=== PATIENT | male | born 1940 | race Two or more races ===

== ENCOUNTER 2023-12-07 11:31 | Emergency (ER) | payer OTHER ==
[2023-12-07 12:08] VITALS: RESP 18; TEMP 97.5
[2023-12-07 13:51] LABS: BASO % 0.8 % (0-2.0); EOS % 3.4 % (0-4.5); HEMATOCRIT 42.3 % (35.4-49); HEMOGLOBIN 14.1 GM/dL (11.7-16.9); LYMPH % 24.1 % (8-40); MCH 30.5 pg (25.7-33.7); MCHC 33.3 g/dl (32.0-35.9); MEAN CELL VOLUME 91.4 fl (80-96); MEAN PLT VOLUME 9.3 fl (7.5-11.1); NEUT % 63.7 % (42.8-82.8); PLATELET COUNT 151 10^3/uL (134-434); RBC 4.63 M/mm3 (4.00-5.60); RDW 14.1 % (11.9-15.9); WHITE BLOOD COUNT 4.4 K/mm3 (4.0-10.0)
[2023-12-07 14:07] LABS: POTASSIUM 4.7 mmol/L (3.5-5.1)
[2023-12-07 14:10] LABS: ALBUMIN 3.4 g/dl (3.4-5.0); CALCIUM 9.5 mg/dL (8.5-10.1)
[2023-12-07 14:13] LABS: CREATININE 1.4 mg/dL (0.55-1.3)
[2023-12-07 14:15] LABS: BILIRUBIN,TOTAL 1.9 mg/dL (0.2-1); TOT PROT 7.2 g/dl (6.4-8.2)
[2023-12-07 14:58] VITALS: BP 182/91; PULSE 60
== END 2023-12-07 15:07 | disposition home or self-care (01) ==
LOC: JER 11:31
DX: I10 Essential (primary) hypertension (principal)
CPT/HCPCS: 36415; 80053; 85025; 93005; 93010; 99284-25

== ENCOUNTER 2024-04-03 09:09 | Inpatient (IN) | payer OTHER ==
[2024-04-03] MEDS ORDERED: METHOCARBAMOL 500 MG TABLET ONE ×2 (10:48→18:48)
[2024-04-03] MEDS ORDERED: ACETAMINOPHEN 325 MG TABLET (FP) ONE ×2 (10:48→18:48)
[2024-04-03] MEDS ORDERED: LIDOCAINE 4% PATCH TP ONE ×2 (10:48→11:58)
[2024-04-03] MEDS: LIDOCAINE 4% PATCH TP ONE (12:07)
[2024-04-03] MEDS: METHOCARBAMOL 750 MG TABLET PO ONE (12:07)
[2024-04-03] MEDS: ACETAMINOPHEN 325 MG TABLET (FP) PO ONE ×2 (12:07→18:52)
[2024-04-03 12:29] LABS: BASO % 0.4 % (0-2.0); EOS % 0.1 % (0-4.5); HEMATOCRIT 39.2 % (35.4-49); HEMOGLOBIN 13.4 GM/dL (11.7-16.9); MCH 31.5 pg (25.7-33.7); MCHC 34.2 g/dl (32.0-35.9); MEAN PLT VOLUME 9.5 fl (7.5-11.1); MONO % 8.5 % (3.8-10.2); PLATELET COUNT 126 10^3/uL (134-434); RBC 4.26 M/mm3 (4.00-5.60); RDW 14.1 % (11.9-15.9); WHITE BLOOD COUNT 11.7 K/mm3 (4.0-10.0)
[2024-04-03 13:23] LABS: POTASSIUM 3.8 mmol/L (3.5-5.1)
[2024-04-03 13:29] LABS: ALBUMIN 3.6 g/dl (3.4-5.0); CALCIUM 9.6 mg/dL (8.5-10.1)
[2024-04-03 13:31] LABS: CREATININE 1.5 mg/dL (0.55-1.3)
[2024-04-03 13:33] LABS: BILIRUBIN,TOTAL 2.8 mg/dL (0.2-1); TOT PROT 7.2 g/dl (6.4-8.2)
[2024-04-03] MEDS: METHOCARBAMOL 750 MG TAB PO ONE (18:52)
[2024-04-03] MEDS ORDERED: DEXTROSE 50%-WATER 25 GM/50 ML DISP.SYRIN ONE (22:28)
[2024-04-03] MEDS ORDERED: CALCIUM GLUCONATE 10% - 1,000 MG/10 ML VIAL ONE (22:29)
[2024-04-03] MEDS ORDERED: INSULIN REGULAR HUMAN 100 UNITS/ML *VIAL ONE (22:29)
[2024-04-03] MEDS ORDERED: HYDROCORTISONE SOD SUCCINATE 100 MG/2 ML VIAL ONE (23:25)
[2024-04-03] MEDS ORDERED: GLUCAGON 1 MG KIT ONE (23:49)
[2024-04-04] MEDS ORDERED: oxyCODONE HCL 5 MG TABLET PO PRN ×2 (03:10→03:19)
[2024-04-04] MEDS ORDERED: ACETAMINOPHEN 325 MG TABLET (FP) PO PRN (03:10)
[2024-04-04] MEDS: SODIUM CHLORIDE 1,000 ML IV SCH (03:30)
[2024-04-04] MEDS: HEPARIN NA (PORCINE) 5,000 UNITS/ML 1ML VIAL SQ SCH (06:03)
[2024-04-04] MEDS: INSULIN ASPART SLIDING SCALE (NOVOLOG) 1 VIAL SQ SCH (06:13)
[2024-04-04 07:00] VITALS: BMI 25.7
[2024-04-04] MEDS: DOCUSATE SODIUM 100 MG CAPSULE (FP) PO SCH (09:25)
[2024-04-04] MEDS ORDERED: POLYETHYLENE GLYCOL (HEALTHYLAX) 3350 17 GM PACKET PO SCH (10:00)
[2024-04-04 10:20] LABS: BASO % 0.1 % (0-2.0); HEMATOCRIT 38.7 % (35.4-49); HEMOGLOBIN 13.1 GM/dL (11.7-16.9); LYMPH % 8.4 % (8-40); MCH 31.3 pg (25.7-33.7); MCHC 33.8 g/dl (32.0-35.9); MEAN CELL VOLUME 92.8 fl (80-96); MEAN PLT VOLUME 8.8 fl (7.5-11.1); MONO % 8.5 % (3.8-10.2); PLATELET COUNT 122 10^3/uL (134-434); RBC 4.17 M/mm3 (4.00-5.60); RDW 13.6 % (11.9-15.9); WHITE BLOOD COUNT 16.1 K/mm3 (4.0-10.0)
[2024-04-04] MEDS ORDERED: GABAPENTIN 100 MG CAPSULE PO SCH (10:45)
[2024-04-04 11:01] LABS: ALBUMIN 3.3 g/dl (3.4-5.0); BLOOD UREA NITROGEN 28.1 mg/dL (7-18); CALCIUM 9.2 mg/dL (8.5-10.1); MAGNESIUM 2.2 mg/dL (1.8-2.4); POTASSIUM 3.2 mmol/L (3.5-5.1)
[2024-04-04 11:03] LABS: BILIRUBIN,DIRECT 0.5 mg/dL (0.0-0.2)
[2024-04-04 11:09] LABS: BILIRUBIN,TOTAL 3.2 mg/dL (0.2-1); PHOSPHOROUS 2.6 mg/dL (2.5-4.9); TOT PROT 7.1 g/dl (6.4-8.2)
[2024-04-04] MEDS: ACETAMINOPHEN 325 MG TABLET (FP) PO SCH (11:59)
[2024-04-04] MEDS: GABAPENTIN 100 MG CAPSULE PO SCH (14:08)
[2024-04-04 14:56] LABS: ANISOCYTOSIS 2+; MACROCYTOSIS 0
[2024-04-04 15:37] LABS: RETICULOCYTES 0.97 % (0.5-1.5)
[2024-04-04 15:51] LABS: EPI CELLS 9 /uL (0-25.1); HYALINE CASTS 0 /uL (0-3.1); PH,URINE 5.5 (5.0-8.0); URINE APPEARANCE CLOUDY; URINE BACTERIA >9,000 /uL (0-1359); URINE BILIRUBIN NEGATIVE (NEGATIVE); URINE COLOR YELLOW; URINE GLUCOSE (UA) NEGATIVE (NEGATIVE); URINE KETONE TRACE (NEGATIVE); URINE LEUK ESTERASE 3+ (NEGATIVE); URINE NITRITE NEGATIVE (NEGATIVE); URINE PROTEIN 2+ (NEGATIVE); URINE RBC 68 /uL (0-23.9); URINE WBC 4687 /uL (0-25.8)
[2024-04-04 17:23] LABS: YEAST NONE SEEN (NEGATIVE)
[2024-04-05 09:55] LABS: BASO % 0.1 % (0-2.0); EOS % 0.1 % (0-4.5); HEMATOCRIT 35.9 % (35.4-49); HEMOGLOBIN 12.5 GM/dL (11.7-16.9); LYMPH % 7.2 % (8-40); MCH 31.7 pg (25.7-33.7); MCHC 34.8 g/dl (32.0-35.9); MEAN CELL VOLUME 90.9 fl (80-96); MEAN PLT VOLUME 9.1 fl (7.5-11.1); MONO % 10.2 % (3.8-10.2); NEUT % 82.4 % (42.8-82.8); PLATELET COUNT 116 10^3/uL (134-434); RBC 3.95 M/mm3 (4.00-5.60); WHITE BLOOD COUNT 10.8 K/mm3 (4.0-10.0)
[2024-04-05 10:10] LABS: POTASSIUM 3.4 mmol/L (3.5-5.1)
[2024-04-05 10:14] LABS: ALBUMIN 2.8 g/dl (3.4-5.0); BLOOD UREA NITROGEN 36.3 mg/dL (7-18); CALCIUM 8.7 mg/dL (8.5-10.1)
[2024-04-05 10:17] LABS: CREATININE 1.9 mg/dL (0.55-1.3)
[2024-04-05 10:18] LABS: BILIRUBIN,TOTAL 1.9 mg/dL (0.2-1); TOT PROT 6.8 g/dl (6.4-8.2)
[2024-04-05] MEDS: oxyCODONE HCL 5 MG TABLET PO PRN (11:02)
[2024-04-05] MEDS: LISINOPRIL 20 MG TABLET PO ONE (12:27)
[2024-04-05] MEDS: POTASSIUM CHLORIDE ORAL LIQUID 20 MEQ/15 ML PO ONE (18:06)
[2024-04-05] MEDS: SENNOSIDES 8.6MG TABLET (FP) PO SCH (18:40)
[2024-04-05] MEDS: POLYETHYLENE GLYCOL (HEALTHYLAX) 3350 17 GM PACKET PO SCH (21:39)
[2024-04-06 09:23] LABS: BASO % 0.3 % (0-2.0); EOS % 0.9 % (0-4.5); HEMATOCRIT 34.4 % (35.4-49); HEMOGLOBIN 11.9 GM/dL (11.7-16.9); LYMPH % 9.6 % (8-40); MCH 31.6 pg (25.7-33.7); MCHC 34.6 g/dl (32.0-35.9); MEAN CELL VOLUME 91.3 fl (80-96); MEAN PLT VOLUME 8.6 fl (7.5-11.1); MONO % 10.4 % (3.8-10.2); NEUT % 78.8 % (42.8-82.8); PLATELET COUNT 121 10^3/uL (134-434); RBC 3.76 M/mm3 (4.00-5.60); RDW 13.8 % (11.9-15.9); WHITE BLOOD COUNT 7.4 K/mm3 (4.0-10.0)
[2024-04-06 10:05] LABS: POTASSIUM 3.5 mmol/L (3.5-5.1)
[2024-04-06 10:07] LABS: ALBUMIN 2.5 g/dl (3.4-5.0); CALCIUM 8.3 mg/dL (8.5-10.1)
[2024-04-06 10:08] LABS: BLOOD UREA NITROGEN 37.3 mg/dL (7-18)
[2024-04-06 10:12] LABS: BILIRUBIN,TOTAL 1.1 mg/dL (0.2-1); CREATININE 1.7 mg/dL (0.55-1.3); TOT PROT 6.2 g/dl (6.4-8.2)
[2024-04-06 14:31] VITALS: RESP 18
[2024-04-06] MEDS: BISACODYL 10 MG SUPP.RECT PR ONE (15:04)
[2024-04-06] MEDS: metoPROLOL SUCCINATE 25 MG TAB.SR.24H (FP) PO SCH (15:29)
[2024-04-06] MEDS: PRAZOSIN HCL 1 MG CAPSULE PO SCH (15:29)
[2024-04-06] MEDS: CEFTRIAXONE 1 GM in DEXTROSE 5%-WATER - 50 ML IVPB SCH (16:29)
[2024-04-06] MEDS: ATORVASTATIN CA 20 MG TABLET (FP) PO SCH (21:57)
[2024-04-06] MEDS ORDERED: ATORVASTATIN CA 40 MG TABLET (FP) PO SCH (22:00)
[2024-04-06] MEDS: VANCOMYCIN/WATER FOR INJ (PEG) 1,000 MG/200 ML BAG IVPB ONE (22:13)
[2024-04-07 09:42] LABS: BASO % 0.3 % (0-2.0); EOS % 1.7 % (0-4.5); HEMATOCRIT 32.5 % (35.4-49); HEMOGLOBIN 11.3 GM/dL (11.7-16.9); LYMPH % 13.2 % (8-40); MCH 31.4 pg (25.7-33.7); MCHC 34.7 g/dl (32.0-35.9); MEAN CELL VOLUME 90.5 fl (80-96); MEAN PLT VOLUME 8.6 fl (7.5-11.1); MONO % 12.9 % (3.8-10.2); NEUT % 71.9 % (42.8-82.8); PLATELET COUNT 125 10^3/uL (134-434); RBC 3.59 M/mm3 (4.00-5.60); WHITE BLOOD COUNT 6.9 K/mm3 (4.0-10.0)
[2024-04-07 10:06] LABS: POTASSIUM 3.8 mmol/L (3.5-5.1)
[2024-04-07 10:11] LABS: ALBUMIN 2.5 g/dl (3.4-5.0); BLOOD UREA NITROGEN 33.3 mg/dL (7-18); CALCIUM 8.4 mg/dL (8.5-10.1); MAGNESIUM 2.2 mg/dL (1.8-2.4)
[2024-04-07 10:14] LABS: CREATININE 1.8 mg/dL (0.55-1.3); PHOSPHOROUS 2.8 mg/dL (2.5-4.9)
[2024-04-07 10:16] LABS: BILIRUBIN,TOTAL 0.6 mg/dL (0.2-1); TOT PROT 6.2 g/dl (6.4-8.2)
[2024-04-07] MEDS: LISINOPRIL 20 MG TABLET PO SCH (11:30)
[2024-04-07] MEDS: HYDROCHLOROTHIAZIDE 25 MG TABLET (FP) PO SCH (11:31)
[2024-04-07] MEDS: CEFTRIAXONE 1 GM in DEXTROSE 5%-WATER - 50 ML IVPB ONE (18:45)
[2024-04-08] MEDS: CEFTRIAXONE 2 GM in DEXTROSE 5%-WATER 100 ML IVPB SCH (10:02)
[2024-04-08 10:08] LABS: BASO % 0.6 % (0-2.0); EOS % 2.7 % (0-4.5); HEMATOCRIT 33.7 % (35.4-49); HEMOGLOBIN 11.9 GM/dL (11.7-16.9); LYMPH % 17.2 % (8-40); MCH 32.3 pg (25.7-33.7); MCHC 35.4 g/dl (32.0-35.9); MEAN CELL VOLUME 91.2 fl (80-96); MEAN PLT VOLUME 8.9 fl (7.5-11.1); MONO % 9.8 % (3.8-10.2); NEUT % 69.7 % (42.8-82.8); PLATELET COUNT 149 10^3/uL (134-434); RDW 13.7 % (11.9-15.9)
[2024-04-08 10:26] LABS: POTASSIUM 3.8 mmol/L (3.5-5.1)
[2024-04-08 10:29] LABS: BLOOD UREA NITROGEN 31.2 mg/dL (7-18)
[2024-04-08 10:33] LABS: CREATININE 1.7 mg/dL (0.55-1.3)
[2024-04-08] MEDS: SODIUM CHLORIDE 500 ML IV STA (15:01)
[2024-04-09 10:14] LABS: HEMATOCRIT 34.8 % (35.4-49); MCH 31.5 pg (25.7-33.7); MCHC 34.6 g/dl (32.0-35.9); MEAN PLT VOLUME 8.7 fl (7.5-11.1); PLATELET COUNT 175 10^3/uL (134-434); RBC 3.82 M/mm3 (4.00-5.60); RDW 13.7 % (11.9-15.9); WHITE BLOOD COUNT 7.4 K/mm3 (4.0-10.0)
[2024-04-09 10:15] LABS: POTASSIUM 3.9 mmol/L (3.5-5.1)
[2024-04-09 10:17] LABS: CALCIUM 9.1 mg/dL (8.5-10.1)
[2024-04-09 10:18] LABS: BLOOD UREA NITROGEN 31.9 mg/dL (7-18)
[2024-04-09 10:21] LABS: CREATININE 1.5 mg/dL (0.55-1.3)
[2024-04-09 12:30] LABS: ANISOCYTOSIS 0; HELMET CELLS 0; HOWELL-JOLLY BODIES 0; MACROCYTOSIS 0; OVALOCYTE 0; ROULEAU 0; SICKELED CELLS 0; TARGET CELLS 0; TEAR DROP CELLS 0; TOXIC GRANULATION 0
[2024-04-10 09:36] LABS: HEMATOCRIT 34.8 % (35.4-49); HEMOGLOBIN 11.9 GM/dL (11.7-16.9); MCH 31.4 pg (25.7-33.7); MCHC 34.3 g/dl (32.0-35.9); MEAN CELL VOLUME 91.8 fl (80-96); MEAN PLT VOLUME 8.7 fl (7.5-11.1); PLATELET COUNT 215 10^3/uL (134-434); RBC 3.79 M/mm3 (4.00-5.60); WHITE BLOOD COUNT 7.4 K/mm3 (4.0-10.0)
[2024-04-10 09:50] LABS: POTASSIUM 4.3 mmol/L (3.5-5.1)
[2024-04-10 09:58] LABS: CALCIUM 8.9 mg/dL (8.5-10.1)
[2024-04-10 09:59] LABS: BLOOD UREA NITROGEN 30.4 mg/dL (7-18)
[2024-04-10 10:03] LABS: CREATININE 1.3 mg/dL (0.55-1.3)
[2024-04-10] MEDS: BISACODYL 10 MG SUPP.RECT PR ONE (10:28)
[2024-04-13 20:05] VITALS: BP 125/75; PULSE 75; TEMP 98.6
== END 2024-04-13 21:04 | DRG 552 ==
LOC: JER 09:09 → JERBED 19:09 → J6S 04-04 03:30 → OBSVTOIN 04-04 10:09
PROVIDERS: ADMIT Internal Medicine; ATTEND Internal Medicine
PROC: 02HV33Z Insertion of Infusion Device into Superior Vena Cava, Percutaneous Approach (ICD-10-PCS; principal; 2024-04-13)
PROC: B518ZZA Fluoroscopy of Superior Vena Cava, Guidance (ICD-10-PCS; 2024-04-13)
DX: M51.16 Intervertebral disc disorders with radiculopathy, lumbar region (principal); N17.9 Acute kidney failure, unspecified; N39.0 Urinary tract infection, site not specified; R78.81 Bacteremia; N13.30 Unspecified hydronephrosis; I10 Essential (primary) hypertension; R32 Unspecified urinary incontinence; R50.9 Fever, unspecified; D72.829 Elevated white blood cell count, unspecified; E78.5 Hyperlipidemia, unspecified; F03.90 Unspecified dementia, unspecified severity, without behavioral disturbance, psychotic disturbance, mood disturbance, and anxiety; B96.20 Unspecified Escherichia coli [E. coli] as the cause of diseases classified elsewhere; M51.34 Other intervertebral disc degeneration, thoracic region; M48.061 Spinal stenosis, lumbar region without neurogenic claudication; E80.6 Other disorders of bilirubin metabolism; K59.00 Constipation, unspecified; Z88.0 Allergy status to penicillin; Z85.46 Personal history of malignant neoplasm of prostate
CPT/HCPCS: 36415; 36569; 71045-TC-FY; 72132-TC; 72141-TC; 72146-TC; 72148-TC; 74018-TC-FY; 74177-TC; 76705-TC; 76775-TC; 76856-TC; 78306-TC; 80048; 80053; 81003; 82248; 82550; 82607; 82962; 83010; 83036; 83615; 83735; 84100; 84153; 84154; 84443; 85025; 85027; 85045; 86780; 87040; 87077; 87086; 87186; 87635; 93005; 93010; 93306-TC; 94010; 97116-GP; 97162-GP; 99285-25; A9503; G0378; G0480; J1644; Q9967